=== PATIENT | male | born 1965 | race Caucasian/White ===

== ENCOUNTER 2023-05-07 10:17 | Day surgery (SDC) | payer OTHER ==
[~2023-05-07] VITALS: Ht 175.3 cm; Wt 100.7 kg
[~2023-05-07 10:17] MED LIST: LR 1,000 ML IV SCH
[2023-05-07 11:07] VITALS: BP 130/77; PULSE 70; TEMP 97.6
[2023-05-07] MEDS ORDERED: NEURONTIN300 MG/CAP PO (11:17)
[2023-05-07] MEDS ORDERED: BUSPAR5 MG PO (11:18)
[2023-05-07] MEDS ORDERED: CYMBALTA 30MG30 MG PO (11:20)
[2023-05-07] MEDS ORDERED: AZULFIDINE500 MG/TAB PO (11:22)
[2023-05-07] MEDS ORDERED: ASPIRIN 81M81 MG/TA2 PO (11:22)
[2023-05-07] MEDS ORDERED: INDERAL40 MG PO (11:25)
[2023-05-07] MEDS ORDERED: LODINE500 MG (11:29)
[2023-05-07] MEDS ORDERED: PEPCID 20MG TAB20 MG PO (11:31)
[2023-05-07] MEDS ORDERED: LIPITOR20 MG PO (11:31)
[2023-05-07] MEDS ORDERED: fentaNYL 50 MCG/ML 2 ML VIAL ONE (11:53)
[2023-05-07] MEDS ORDERED: Lidocaine PF 2% (20 MG/ML) 5 ML VIAL ONE (11:53)
[2023-05-07] MEDS ORDERED: Ondansetron 4 MG/2 ML VIAL ONE (11:53)
[2023-05-07] MEDS ORDERED: Ketorolac 30 MG/ML VIAL IV PRN (12:30)
[2023-05-07] MEDS ORDERED: Ondansetron 4 MG/2 ML VIAL IV PRN ×2 (12:30→13:15)
[2023-05-07] MEDS ORDERED: Morphine 4 MG/ML VIAL IV PRN ×2 (12:30→13:15)
[2023-05-07] MEDS ORDERED: HYDROmorphone 2 MG/1 ML VIAL IV PRN (12:30)
[2023-05-07] MEDS ORDERED: droPERidol 2.5 MG/ML 2 ML VIAL IV PRN (12:30)
[2023-05-07] MEDS ORDERED: fentaNYL 50 MCG/ML 2 ML VIAL IV PRN (12:30)
[2023-05-07] MEDS ORDERED: Lidocaine 1% w EPI (1:100,000) 20 ML Multi-Dose VIAL SQ ONE (12:35)
[2023-05-07] MEDS ORDERED: NS 10 ML IV ONE (12:51)
[2023-05-07 13:11] VITALS: BP 116/80; PULSE 74; TEMP 97
[2023-05-07] MEDS ORDERED: MOTRIN 600600 MG/TAB PO (13:13)
[2023-05-07] MEDS ORDERED: NORCO 325 MG-51 TAB PO (13:14)
[2023-05-07] MEDS ORDERED: Ibuprofen 600 MG TAB PO PRN (13:15)
[2023-05-07] MEDS ORDERED: Acetaminophen 325 MG TAB PO PRN (13:15)
[2023-05-07 13:26] VITALS: BP 102/71; PULSE 73
[2023-05-07 13:41] VITALS: BP 104/75; PULSE 71
--- NOTE | 2023-05-07 14:34 | NUR ---
1311-PATIENT ARRIVED VIA CART TO [facility] [place], PATIENT SEDATED ON ARRIVAL. VITAL SIGNS TAKEN, VSS. REPORT OBTAINED FROM OR STAFF. PATIENT OPENS EYES WITH STIMULUS. SPOUSE BROUGHT TO BEDSIDE. TO CONTINUE TO MONITOR 1326-PATIENT MORE ALERT, VSS. PATIENT DENIES PAIN OR NAUSEA AT THIS TIME. 1341-PATIENT DENIES COMPLAINTS, TOLERATING PO LIQUIDS WELL. 1400-DISCHARGE INSTRUCTIONS REVIEWED WITH PT AND SPOUSE, QUESTIONS INVITED. PATIENT ASSISTED WITH DRESSING BY SPOUSE. 1410-IV CATHETER DISCONTINUED, TIP INTACT. PRESSURE HELD AND BANDAGE APPLIED. 1420-PATIENT DISCHARGED HOME TO [facility] VIA WHEELCHAIR, ACCOMPANIED BY SPOUSE. ALL BELONGINGS AND D/C PAPERWORK SENT WITH PT.
== END 2023-05-07 14:20 | disposition home or self-care (01) ==
LOC: SDCO 10:17
DX: K62.0 Anal polyp (principal); K64.4 Residual hemorrhoidal skin tags; L29.0 Pruritus ani; L28.0 Lichen simplex chronicus; K64.1 Second degree hemorrhoids
CPT/HCPCS: J0665; J0690; J2405; J2704; J3010; J7120